=== PATIENT | female | born 1990 | race Caucasian/White ===

== ENCOUNTER → 2020-08-01 11:10 | Outpatient (CLI) | payer OTHER, SELFPAY ==
--- NOTE | 2020-08-01 11:15 | DI.US.S_ITS ---
PROCEDURE: US OB <= 14 WEEKS FETUS INDICATIONS: DATING AND VIABILITY OUTSIDE/PRIOR DATING DATA: Last menstrual period (LMP): 05/21/20 LMP-based estimated date of delivery (MILLIE): 02/25/21 First dating scan (date and location): This study Estimated date of delivery (MILLIE) from first dating scan: 02/23/21 TECHNIQUE: Real-time scanning was performed of the fetus and maternal pelvic organs, with image documentation. Endovaginal scanning was also performed to better visualize the fetus and maternal ovaries. COMPARISON: None. FINDINGS: Embryo: There is a single living intrauterine gestation with heart rate 163 beats per minute and crown-rump length 3.7 cm which correlates with a gestational age of 10 weeks 4 days, +/-5 days. Measurement variability in dating: +/- 4 weeks by LMP, +/- 7 days by mean sac diameter (use before 6 weeks gestation if crown-rump length not able to be measured), +/- 5 days by crown-rump length (up to 8 weeks 6 days gestation), +/- 7 days by crown-rump length (up to 13 weeks 6 days gestation). Maternal organs: Ovaries the right ovary appears asymmetric measuring up to 3.9 x 3.8 x 6.0 cm with what appears to be a right ovarian cyst measuring up to 3.4 x 3.4 x 4.1 cm. . IMPRESSION: Single living intrauterine gestation with heart rate observed and delivery date projected to be centered on 02/23/21, +/-5 days. Note is made of an abnormally enlarged right ovary predominantly due to a large cyst at the right ovary. It is unclear whether this is a pre-existing longstanding cyst or an unusual manifestation of a corpus luteum cyst. Follow-up in several weeks to confirm resolution is recommended. Finally, follow-up anatomic survey at 20 weeks gestation is recommended. Dictated by: Kun Gould M.D. on 08/01/2020 at 13:11 Approved by: Kun Gould M.D. on 08/01/2020 at 13:16
== END ==
PROVIDERS: Referring Provider Obstetrics & Gynecology; Visit Provider Obstetrics & Gynecology
DX: Z34.81 Encounter for supervision of other normal pregnancy, first trimester (principal); Z3A.10 10 weeks gestation of pregnancy
CPT/HCPCS: 36415; 76801; 76817; 80055; 81003; 86787; 86803; 86850; 86900; 86901; 87086; 87389

== ENCOUNTER → 2020-08-01 11:56 | Outpatient (CLI) | payer OTHER, SELFPAY ==
[2020-08-01 12:22] LABS: Add Manual Diff / Slide Review NO; Basophils Absolute Auto 0 /uL (0-100); Basophils Percent Auto 0.6 % (0-2); Eosinophils Absolute Auto 100 /uL (0-450); Hematocrit 38.4 % (36-46); Hemoglobin 13.2 g/dL (12.0-16.0); Lymphocytes Absolute Auto 1800 /uL (1100-4500); Mean Corpuscular HGB Conc 34.5 % (30-36); Mean Corpuscular Hemoglobin 31.7 PG (26-34); Monocytes Absolute Auto 600 /uL (0-900); Monocytes Percent Auto 7.2 % (3-14); Neutrophils Absolute Auto 5300 /uL (1500-7000); Neutrophils Percent Auto 68.2 % (50-75); Platelet Count 192 X10^3/uL (150-400); Red Blood Cell Count 4.18 X10^6/uL (4.0-5.2); White Blood Cell Count 7.7 X10^3/uL (4.5-11.0)
[2020-08-01 12:36] LABS: Appearance Urine UA CLEAR; Bilirubin Urine UA NEGATIVE (NEGATIVE); Color Urine UA YELLOW; Glucose Urine UA NEGATIVE (Negative); Ketones Urine UA NEGATIVE (NEGATIVE); Leukocyte Esterase Urine UA NEGATIVE (NEGATIVE); Nitrite Urine UA NEGATIVE (Negative); Occult Blood Urine UA NEGATIVE (Negative); Protein Urine UA NEGATIVE (Negative); Specific Gravity Urine UA <=1.005 (1.000-1.035); Urobilinogen Urine UA 0.2 E.U./dL (0.2)
[2020-08-01 13:50] LABS: Hepatitis B Surface Antigen NEGATIVE s/c (NEGATIVE); Rubella Antibody IgG 7.6 IU/mL (>15)
[2020-08-01 14:06] LABS: HIV 1 & 2 Ab/Ag 4th Gen Combo NEGATIVE (NEGATIVE); Hep C Virus Ab w/Reflex Quant NEGATIVE s/c (NEGATIVE)
[2020-08-02 06:38] LABS: RPR Screen Non Reactive (Non Reactive)
[2020-08-02 08:08] LABS: Varicella IgG Antibody 523 index (Immune >165)
== END ==
PROVIDERS: Referring Provider Obstetrics & Gynecology; Visit Provider Obstetrics & Gynecology
DX: Z34.81 Encounter for supervision of other normal pregnancy, first trimester (principal)
CPT/HCPCS: 36415; 80055; 81003; 86787; 86803; 86850; 86900; 86901; 87086; 87389

== ENCOUNTER → 2020-10-08 14:08 | Outpatient (CLI) | payer OTHER, SELFPAY ==
--- NOTE | 2020-10-08 14:09 | DI.US.S_ITS ---
PROCEDURE: US OB >= 14 WEEKS FETUS INDICATIONS: ANATOMY SCAN OUTSIDE/PRIOR DATING DATA: Last menstrual period (LMP): 05/21/2020 LMP-based estimated date of delivery (MILLIE): 02/25/2021 . First dating scan (date and location): 08/01/2020 . Estimated date of delivery (MILLIE) from first dating scan: 02/23/2021 . TECHNIQUE: Real-time scanning was performed of the fetus, with image documentation and biometric measurements. Endovaginal scanning: No COMPARISON: [facility], , OB <= 14 WEEKS FETUS, 08/11/2020, 13:58. FINDINGS: General: A single living intrauterine gestation is present. Presentation: Vertex Placenta: Placental position is posterior , without previa. Amniotic fluid index: 14.3 cm, normal range is 5-24 cm. heart rate: 153 beats per minute. Maternal cervical canal: 3.7 cm long. Normal lower limit is 2.5 cm. biometrics: Biparietal diameter: 20 weeks Head circumference: 20 weeks Abdominal circumference: 20 weeks 4 days Femur length: 21 weeks 4 days Estimated gestational age from initial scan: 20 weeks 2 days Composite gestational age from present scan: 20 weeks 4 days Estimated weight and percentile: 380 g; 81st percentile Measurement variability for biometric dating: +/- 7 days from 14 weeks to 15 weeks 6 days gestation, +/- 10 days from 16 weeks to 21 weeks 6 days gestation, +/- 2 weeks from 22 weeks to 27 weeks 6 days gestation, +/- 3 weeks for 28 weeks gestation or later. weight reference: 4500 g or EFW >90/95% is considered macrosomia or large for gestational age. EFW <10% is small for gestational age. EFW 5% or less is considered intra-uterine growth restriction. Anatomic survey: Neuro: Ventricles are non-dilated at less than 10 mm. Cisterna magna is normal at 3-11 mm. Cerebellum is normal in size and morphology. Nuchal skin fold: Normal at less than 6 mm between 14-21 weeks gestational age. Face: Nose and lips, facial profile are normal. Spine: No evidence for spina bifida. Heart: 4-chambered heart is present, with normal ventricular outflow tracts. Diaphragm: Diaphragm is intact. Stomach: Left-sided stomach is present. Kidneys: No hydronephrosis. Normal is less than 5 mm in 2nd trimester, less than 7 mm in 3rd trimester. Cord: 3-vessel cord has orthotopic insertion. Bladder: Normal in size. Extremities: All 4 extremities identified. IMPRESSION: 1. Normal interval growth. 2. Normal anatomic survey. Dictated by: Memo Jimenez [facility] Interpreted: Kun Gould MD on 10/08/2020 at 15:45 Transcribed by: DAYSI on 10/08/2020 at 15:47 Approved by: Kun Gould M.D. on 10/08/2020 at 17:23
== END ==
PROVIDERS: Referring Provider Obstetrics & Gynecology; Visit Provider Obstetrics & Gynecology
DX: Z36.89 Encounter for other specified antenatal screening (principal); Z3A.20 20 weeks gestation of pregnancy
CPT/HCPCS: 76811

== ENCOUNTER → 2020-11-24 09:33 | Outpatient (CLI) | payer OTHER, SELFPAY ==
[2020-11-24 11:53] LABS: Hematocrit 36.2 % (36-46); Hemoglobin 12.2 g/dL (12.0-16.0)
[2020-11-24 12:12] LABS: GTT (PREG) 1 Hour PP 50gm Dose 106 mg/dL (76-139)
== END ==
PROVIDERS: Referring Provider Obstetrics & Gynecology; Visit Provider Obstetrics & Gynecology
DX: Z34.82 Encounter for supervision of other normal pregnancy, second trimester (principal); Z3A.24 24 weeks gestation of pregnancy
CPT/HCPCS: 36415; 82950; 85014; 85018

== ENCOUNTER → 2021-02-02 09:57 | Outpatient (CLI) | payer OTHER, SELFPAY ==
[2021-02-04 07:38] LABS: Strep Grp B PCR POS for Grp B Strep
== END ==
PROVIDERS: Visit Provider Obstetrics & Gynecology
DX: Z34.83 Encounter for supervision of other normal pregnancy, third trimester (principal); Z3A.36 36 weeks gestation of pregnancy
CPT/HCPCS: 87653

== ENCOUNTER 2021-02-20 07:05 | Inpatient (IN) | payer OTHER, SELFPAY ==
--- NOTE | 2021-02-20 08:19 | P.HPOB_ITS ---
OB HPI Date/Time Date of admission: 02/20/21 Date Patient Seen: 02/20/21 Time Patient Seen: 07:35 History of Present Condition Chief complaint: L&D MILLIE Calculator Estimated Delivery Date Method Current WG Current Estimate 02/25/21 LMP (Certain) 39w 5d Other Estimates 02/23/21 Ultrasound #1 40w 0d Estimated Gestational Age (weeks): 39+2 : 6 Para: 3 care: good care, initiated at week # (1), number of visits (9) and pounds weight gain (13) Dating criteria OB: LMP confirmed by 1st trimester US Ultrasounds: normal 1st trimester US and normal mid trimester US Obstetrical complications: none Medical complications OB: none Preadmission Labs Last OB Lab Results: Blood Type A Positive 02/20/21 08:00 02/20/21 Antibody Screen Negative 02/20/21 08:00 02/20/21 Hematocrit 39.2 % (36-46) 02/20/21 08:00 02/20/21 Hemoglobin 13.5 g/dL (12.0-16.0) 02/20/21 08:00 02/20/21 Hepatitis B Surface Antigen Negative s/c (NEGATIVE) 08/01/20 12:03 08/01/20 Hepatitis C Antibody Negative s/c (NEGATIVE) 08/01/20 12:03 08/01/20 Rubella Antibody 7.6 IU/mL (>15) L 08/01/20 12:03 08/01/20 Varicella-Zoster IgG Antibody 523 index (Immune >165) 08/01/20 12:03 08/01/20 Glucose 1 Hour 106 mg/dL (76-139) 11/24/20 11:09 11/24/20 Group B Streptococcus (PCR) Pos for grp b strep H 02/02/21 09:57 02/02/21 -: Chlamydia screen: negative, Gonorrhea screen: negative and Urine: negative -: PAP smear: Normal External Labs -: Urine: negative Prior (ies) Past Pregnancies Del. Date GA/Weeks Labor Lgth Wt Sex Route Outcome Anesthesia Place Delv Breastfeed Preg Comp Name 05/15/12 7-8 spontaneous 08/15/14 40.4 40 7 lb 15 oz Female vaginal live - full te rm none [place], [place] 6 mos, OCPs started:low supply none Cathryn 07/21/16 13 spontaneous 04/20/18 39.5 26 6 lb 8 oz Female vaginal live - full ter m epidural [place], [place] 1 week; latch challenges pre-eclampsia Fauzia 07/06/19 37 13 6 lb 14 oz Male vaginal live - epidural [place], [place] 13+, low supply, also formula. pre-eclampsia Filipe Delivery Date: 05/15/12 Last Updated by: Keke Ortega R.N. D & C. Delivery Date: 08/15/14 Last Updated by: Keke Ortega R.N. 2nd degree w repair. No PPD. Delivery Date: 04/20/18 Last Updated by: Keke Ortega R.N. GBS+. Induced for Preeclampsia without severe features. BP elevation started late 38/39 wks. Delivery Date: 07/06/19 Last Updated by: Keke Ortega R.N. GBS+. Preeclampsia with severe features, induced at 37 wks. (COOK and visual changes). BP started rising early @ 13/14 wks, another high BP @ 29 weeks then stable until sx started @ 37 wks. jaundice with phototherapy. Evaluation Evaluation Baseline heart rate: 135 Variability: Moderate (11-25) monitor accelerations: Present Monitor Decelerations: Absent Contraction Frequency (minutes): 3 Uterine Contraction Intensity: Strong/Firm Status: Category l Dilation (cm): 10 Effacement (%): 100 station: +1 [facility] Medical History (Updated 02/13/21 @ 20:38 by Chata Milian DO) Abnormal Papanicolaou smear of cervix (~2013) Chronic eczema (~1993) Preeclampsia Surgical History (Updated 08/07/20 @ 14:44 by Keke Ortega RN) H/O dilation and curettage (~2016) [place] teeth extracted Family History (Updated 08/07/20 @ 14:51 by Keke Ortega RN) Mother Thyroid cancer Father No problems noted. Grandmother Hypertension Uterine cancer H/O: hysterectomy Grandfather Alzheimer's disease Myocardial infarct Grandmother Brain tumor Grandfather FH: CABG (coronary artery bypass surgery) Heart disease Social History marital status: number of children: 3 household members: spouse, family (Pts brother. ) and children lives independently: Yes caregiver/support person: No housing: house pets and animals: Yes (2 dogs: safe. ) education level: college occupational status: unemployed ([employer] current occupational exposures/hazards: No special gay needs: No seatbelt use: always helmet use: Yes working smoke detector in home: Yes fire extinguisher in home: Yes carbon monox detector in home: Yes firearms in home: No do you feel safe at home: Yes Smoking Status: Former smoker Tobacco: How many years used: 1 quit status: has quit before second hand exposure: No alcohol intake: never substance use type: does not use during the past year weight has: decreased > 10 lbs well-balanced diet: daily or most days caffeine: No frequency: does not exercise (Not since moving to [facility]. Used to do interval type workouts. ) Meds Home Medications and Allergies Home Medications Medication Instructions Recorded Confirmed Type cetirizine 10 mg tablet (Zyrtec) 10 mg PO DAILY PRN 08/07/20 02/21/21 History magnesium 200 mg tablet 200 mg PO DAILY 08/07/20 02/21/21 History prenat.vits,zoila,[id number] 1 tab PO DAILY 08/07/20 02/21/21 History Allergies Allergy/AdvReac Type Severity Reaction Status Date / Time soy Allergy Severe Anaphylaxis Verified 02/09/21 09:29 tree nut Allergy Intermediate Itchy Verified 02/09/21 09:29 throat and swelling naproxen [From Aleve] AdvReac Mild GI Upset Verified 02/09/21 09:29 sulfamethoxazole AdvReac Mild GI upset Verified 02/09/21 09:29 [From Bactrim] trimethoprim [From Bactrim] AdvReac Mild GI upset Verified 02/09/21 09:29 OB Exam Narrative Exam Narrative: Generally: Patient tolerating contractions without an epidural Lungs: Clear to auscultation bilaterally Cardiovascular: Regular rate and rhythm Fundal height: 39 cm Estimated weight: 8 lb Extremities: No edema, 1+ DTRs Objective Labs Result Diagrams: 02/20/21 08:00 Assessment and Plan Assessment and Plan Assessment and Plan narrative: Assessment: 30-year-old 6 para 3 at 39-,2/7 weeks gestation in active labor entering second stage Plan: Artificial rupture of membranes with copious clear amniotic fluid Expected management to spontaneous vaginal delivery Time Spent with Patient Total time spent with greater than 50% in coordination of care (as documented) at patient's floor/unit and/or counseling patient:: 15-24 minutes
[2021-02-20 08:23] LABS: Add Manual Diff / Slide Review NO; Basophils Absolute Auto 0 /uL (0-100); Basophils Percent Auto 0.2 % (0-2); Eosinophils Absolute Auto 100 /uL (0-450); Eosinophils Percent Auto 0.5 % (2-4); Hematocrit 39.2 % (36-46); Hemoglobin 13.5 g/dL (12.0-16.0); Lymphocytes Absolute Auto 1900 /uL (1100-4500); Lymphocytes Percent Auto 19.7 % (25-40); Mean Corpuscular HGB Conc 34.4 % (30-36); Mean Corpuscular Hemoglobin 32.3 PG (26-34); Mean Corpuscular Volume 94.1 fL (80-100); Monocytes Absolute Auto 700 /uL (0-900); Monocytes Percent Auto 7.5 % (3-14); Neutrophils Absolute Auto 7100 /uL (1500-7000); Neutrophils Percent Auto 72.1 % (50-75); Platelet Count 128 X10^3/uL (150-400); Red Blood Cell Count 4.16 X10^6/uL (4.0-5.2); Red Cell Distribution Width 13.6 % (11.6-14.8); White Blood Cell Count 9.9 X10^3/uL (4.5-11.0)
[2021-02-20] MEDS: OXYTOCIN PREMIX 30 UNIT/500 ML PLAST..BAG 200 UNIT IV (08:35)
[2021-02-20 08:39] LABS: COVID19 -Nasal RAPID Negative (Negative)
[2021-02-20] MEDS: KETOROLAC 30 MG/ML VIAL IV ×2 (08:53→14:56)
[2021-02-20 11:57] VITALS: BP 130/68
--- NOTE | 2021-02-20 14:41 | P.PCNOB_ITS ---
Labor & Delivery Delivery date: 02/20/21 Intrapartal Events: Precipitous Labor < 3 hours Cervical ripening method: none Induction method: none Delivery augmentation: rupture of membranes Delivery monitor: external FHT and external uterine Route of delivery: Episiotomy description: None L&D Laceration Description: Perineal - 1st Degree Delivery repair: chromic Estimated blood loss (mL): 300 Anesthesia Type: Local (for repair only) Complications: None Narrative: Patient complete and pushed with 2 contractions. At 0825, a live female infant delivered spontaneously in the CONNER presentation, over an intact perineum. No nuchal cord. The remainder of the body delivered without difficulty and was placed on mom's abdomen. There was a short cord. After the cord stopped pulsing, the cord was double clamped and cut. Cord bloods were obtained. Pitocin was given in the IV fluids. The placenta delivered intact with a three- vessel cord at 8:35 a.m.. The fundus was massaged to firm. A first-degree perineal laceration was repaired with 3-0 chromic in the usual fashion, after 10 cc of 1% lidocaine were injected. Hemostasis was achieved. Estimated blood loss 300 cc. Apgars 7 at 1 minute and 9 at 5 minutes. Weight 8 lb 14.9 oz. . Local analgesia only. Mom and stable to recovery. [place] Baby 1: Infant gender: Female Presentation: vertex Position: Right Occiput Anterior Placenta delivery description: Spontaneous Cord Vessel Description: 3 Vessels score (1 min): 7 score (5 min): 9 weight: 8 lb 14 oz Plan for aftercare: Routine care
[2021-02-20] MEDS: LANOLIN OINT 7 GM 1 APPLIC TOP (14:57)
[2021-02-20] MEDS: IBUPROFEN 600 MG TABLET PO (21:07)
[2021-02-21] MEDS: IBUPROFEN 600 MG TABLET PO ×2 (02:55→09:06)
[2021-02-21] MEDS: PRENATAL VIT,CALC/IRON/FOLIC 1 TABLET 1 TAB PO (09:06)
[2021-02-21] MEDS: DOCUSATE 100 MG CAPSULE PO (09:06)
[2021-02-21 12:10] VITALS: BP 121/81; PULSE 92; RESP 16; TEMP 36.6
--- NOTE | 2021-02-23 22:20 | PM.OBDS.1 ---
Discharge Providers Provider Date of admission: 02/20/21 07:05 Discharge Date: 02/21/21 Consults: 02/21/21 08:44 Consult to Dupligraph Operator Routine Comment: Discharge provider: Amie Alba MD Summary Hospital Course Date Patient Seen: 02/21/21 Time Patient Seen: 08:45 Diagnoses: 39-2/7 weeks gestation Spontaneous vaginal delivery First-degree perineal laceration and repair Precipitous labor and delivery Hospital Course: Patient is a 30-year-old 6 para 4 who presented on February 20, 2021 fully dilated with a bulging bag of water. Artificial rupture membranes was performed with copious clear amniotic fluid. She pushed twice and had a spontaneous vaginal delivery. She had a first-degree laceration and repair. Her course was unremarkable and she is discharged home on day # 1. Peripartum Data Delivery Method: Natural Vaginal Laceration Description: Perineal - 1st Degree Episiotomy description: None Procedures: Artificial rupture of membranes Spontaneous vaginal delivery First-degree perineal laceration repair complications: none 1: Gender: Female Disposition of : home Status at Discharge Cognitive/behavioral status at discharge: oriented Functional status at discharge: independent ambulation Overall status at discharge: patient is progressing back to baseline Time Spent with Patient Time attestation: Total time spent providing and/or coordinating discharge services: Time spent: Less than 30 minutes Objective Labs Result Diagrams: 02/20/21 08:00 Exam Narrative Exam Narrative: Generally: Patient is sitting up in bed, holding , no acute distress Fundus: Firm at U -1 Extremities: Negative Homans, no edema Discharge Plan Discharge Plan Patient Disposition: Home Provider Discharge Comment: Call with fever, chills or bleeding vaginally more than a pad in an hour Ibuprofen 600mg every 6 hours for cramping Discharge orders & Medications Prescriptions: Continued cetirizine [Zyrtec] 10 mg tablet 10 mg PO DAILY PRN (Reason: Allergic Symptoms) 0RF prenat.vits,zoila,[id number] Tablet 1 tab PO DAILY 0RF magnesium 200 mg tablet 200 mg PO DAILY 0RF Follow up/Referrals: Amie Alba MD [Physician] - 6 Weeks () Diet/Activity/Treatments Diet: Regular Skin/Wound/Dressing Care Report to your healthcare provider any signs of infection, such as:: chills, fever, increased pain and unusual drainage Visit Report/Discharge Packet Instructions: DI for Labor and Delivery, Vaginal Stand Alone Forms: Discharge: Care
== END 2021-02-21 14:50 | disposition home or self-care (01) | DRG 807 ==
PROVIDERS: Admitting Provider Obstetrics & Gynecology; Referring Provider Obstetrics & Gynecology; Visit Provider Obstetrics & Gynecology
DX: O99.824 Streptococcus B carrier state complicating childbirth (principal); Z37.0 Single live birth; Z3A.39 39 weeks gestation of pregnancy; O62.3 Precipitate labor; O70.0 First degree perineal laceration during delivery
CPT/HCPCS: 36415; 59050; 59400; 85025; 86850; 86900; 86901; 87635; C9803; G0379; J1885; J2590

== ENCOUNTER 2022-01-01 14:30 | Outpatient (RCR) | payer OTHER, SELFPAY ==
--- NOTE | 2021-09-14 12:00 | PT.OPPOC ---
Physical, Occupational & Speech Therapy At [facility] Current Diagnoses Low back pain, unspecified (09/14/21) Other specified disorders of muscle (09/14/21) Stress incontinence (female) (male) (09/14/21) Visit Care Team Role Provider Type Argenis Ackerman MD Attending Provider Physician Family Provider Primary Care Provider Referring Provider Specialty: Family Practice Address: [address] [place] [address], [place], [address] Email: [email or web address] Plan Of Care PT-OP-T Assessment and Plan Start: 09/14/21 07:57 Freq: Status: Active Protocol: Document 09/14/21 09:00 AMB (Rec: 09/16/21 21:30 AMB [id number]) Physical Therapy Assessment Rehab Potential Rehabilitation Potential Good Evaluation Complexity Number of Personal Factors/Comorbidities 1-2 Number of Body Systems Impaired 1-2 Clinical Presentation at Evaluation Stable Impairments Impairments Pain,Strength Goals Two Impairment Back pain/diastasis recti Short Term Goal (STG) Yesika will be independent with a HEP for pelvic floor and core strengthening STG Duration 5 weeks Alf Goal (LTG) Yesika will lift her children with 1/10 back pain or less. LTG Duration 10 weeks One Impairment Continence Short Term Goal (STG) Yesika will squat without leaking urine. STG Duration 5 weeks Case Mgr Goal (LTG) Yesika will perform light plyometrics without leaking. LTG Duration 10 weeks Assessment Summary Assessment Yesika attends PT with [facility] s/p 4 vaginal deliveries. She would also like to address her low back pain and diastasis recti, which are all related to her goal of returning to exercise. She presents with 3 /5 pelvic floor strength, 2 finger width diastasis which contributes to low back pain, which improved with exercise, but CHAZ is worse with exercise. She will benefit from PT for appropriate return to exercise program to improve levator ani and transversus abdominus strength to reduce her incontinence and pain. Physical Therapy Plan Frequency and Duration Frequency of Treatment 1x/Week Duration of Treatment 10 weeks Plan of Care Start Date 09/14/21 Plan of Care End Date 11/23/21 Therapeutic Interventions Therapeutic Interventions Home Exercise Program,Manual Therapy,Neuromuscular Re- education,Self-Care/Home Management,Therapeutic Activities,Therapeutic Exercises Modalities Biofeedback,Electric Stimulation Next Visit Focus/Plan Next Note Type Treatment Note Next Visit Plan Biofeedback/ progress strengthening, address TA weakness, consider taping for diastasis Plan of Care Dates Plan of Care Start Date 09/14/21 Plan of Care End Date 11/23/21 Electronically Signed by: Violet Renteria, PT 09/17/21 0726 If you are in agreement with this Plan of Care, please return a signed and dated copy. I have reviewed this Plan of Care and certify that the skilled therapy services above are required to meet the patient?s needs. Physician Signature Date Printed Name and Credentials Clinical Instructor Signature Printed Name and Credentials
--- NOTE | 2021-09-14 12:00 | PT.OIE ---
Current Diagnoses Low back pain, unspecified (09/14/21) Other specified disorders of muscle (09/14/21) Stress incontinence (female) (male) (09/14/21) Past Medical History (Last Updated 08/28/21 @ 21:17 by Evy Nielsen) Abnormal Papanicolaou smear of cervix (~2013) Chronic eczema (~1993) Preeclampsia Past Surgical History (Last Updated 08/28/21 @ 21:17 by Evy Nielsen) Anesthesia H/O dilation and curettage (~2016) [place] teeth extracted (~05/2013) Visit Care Team Role Provider Type Argenis Ackerman MD Attending Provider Physician Family Provider Primary Care Provider Referring Provider Specialty: [facility] Practice Address: [address] [place] [address], [facility] Email: [email or web address] Physical Therapy Initial Evaluation PT-OP-A Visit Information Start: 09/14/21 07:57 Freq: Status: Active Protocol: Document 09/14/21 09:05 AMB (Rec: 09/14/21 09:23 AMB [id number]) Out-Patient Physical Therapy Visit Information Visit Information Visit Type Initial Evaluation Visit Start Time 09:00 Visit Stop Time 09:45 Total Visit Minutes 45 Visit Number 1 PT-OP-B Current Condition Start: 09/14/21 07:57 Freq: Status: Active Protocol: Document 09/14/21 09:05 AMB (Rec: 09/14/21 09:23 AMB [id number]) Current Condition History of Current Condition Onset Date 6 months Current Complaints Stress urinary incontinence History of Current Condition vaginal deliveries, 3 in last 3 years. 2nd degree tear with the first, then 1st, no prolonged pushings, no longer breast feeding. Current back pain. Noticed it at least 4 months ago. Was getting better with exercise and then stopped exercising because of a dental procedure and hasn't gotten back to it. Denies urgency. Does have stress incontinence intermittently, mostly with exercise. Sometimes squatting, sometimes not. Personal Factors Other Personal Factors That May Effect Back pain, 4 vaginal Therapy/Recovery deliveries PT-OP-C Subjective Start: 09/14/21 07:57 Freq: Status: Active Protocol: Document 07/28/22 07:23 AMB (Rec: 09/17/21 07:24 AMB [id number]) Patient Questionnaires Pelvic Pain and Urgency/Frequency Patient Symptom Scale Pelvic Pain Score 2 PT-OP-I Pelvic Floor Start: 09/14/21 07:57 Freq: Status: Active Protocol: Document 09/14/21 09:00 AMB (Rec: 09/16/21 21:30 AMB [id number]) Pelvic Floor Assessment Urine Pelvic Floor Surgery No Leakage Size Small Leakage Cause Exercise Voiding Frequency 5/day Nocturia 1 Prolapse Rectocele Grade 2 Perineal Descent Resting Absent Bearing Present Contraction Ability Voluntary Contraction Weak Voluntary Relaxation Moderate Manual Muscle Testing Left 3 Manual Muscle Testing Right 3 Manual Muscle Testing Anterior 3 Manual Muscle Testing Posterior 3 Muscle Endurance (Seconds) 7 Number of Quick Contractions In 10 4 Seconds Comments Pelvic Floor Comments 2 finger width diastasis distal to umbilicus PT-OP-T Assessment and Plan Start: 09/14/21 07:57 Freq: Status: Active Protocol: Document 09/14/21 09:00 AMB (Rec: 09/16/21 21:30 [facility] [id number]) Physical Therapy Assessment Rehab Potential Rehabilitation Potential Good Evaluation Complexity Number of Personal Factors/Comorbidities 1-2 Number of Body Systems Impaired 1-2 Clinical Presentation at Evaluation Stable Impairments Impairments Pain,Strength Goals Two Impairment Back pain/diastasis recti Short Term Goal (STG) Yesika will be independent with a HEP for pelvic floor and core strengthening STG Duration 5 weeks [employer] Operator Goal (LTG) Yesika will lift her children with 1/10 back pain or less. LTG Duration 10 weeks One Impairment Continence Short Term Goal (STG) Yesika will squat without leaking urine. STG Duration 5 weeks [facility] Goal (LTG) Yesika will perform light plyometrics without leaking. LTG Duration 10 weeks Assessment Summary Assessment Yesika attends PT with [facility] s/p 4 vaginal deliveries. She would also like to address her low back pain and diastasis recti, which are all related to her goal of returning to exercise. She presents with 3 /5 pelvic floor strength, 2 finger width diastasis contributes to low back pain which improved with exercise, but CHAZ is worse with exercise. She will benefit from PT for appropriate return to exercise program to improve levator ani and transversus abdominus strength to reduce her incontinence and pain. Physical Therapy Plan Frequency and Duration Frequency of Treatment 1x/Week Duration of Treatment 10 weeks Plan of Care Start Date 09/14/21 Plan of Care End Date 11/23/21 Therapeutic Interventions Therapeutic Interventions Home Exercise Program,Manual Therapy,Neuromuscular Re- education,Self-Care/Home Management,Therapeutic Activities,Therapeutic Exercises Modalities Biofeedback,Electric Stimulation Next Visit Focus/Plan Next Note Type Treatment Note Next Visit Plan Biofeedback/ progress strengthening, address TA weakness, consider taping for diastasis
--- NOTE | 2021-09-21 12:57 | PT.OTN ---
Current Diagnoses Low back pain, unspecified (09/21/21) Other specified disorders of muscle (09/21/21) Stress incontinence (female) (male) (09/21/21) Physical Therapy Treatment Note PT-OP-A Visit Information Start: 09/14/21 07:57 Freq: Status: Active Protocol: Document 09/21/21 12:44 AMB (Rec: 09/21/21 12:57 AMB [id number]) Out-Patient Physical Therapy Visit Information Visit Information Visit Type Treatment Note Visit Start Time 09:00 Visit Stop Time 09:45 Total Visit Minutes 45 Visit Number 2 PT-OP-B Current Condition Start: 09/14/21 07:57 Freq: Status: Active Protocol: Document 09/14/21 09:05 AMB (Rec: 09/14/21 09:23 AMB [id number]) Current Condition History of Current Condition Onset Date 6 months Current Complaints Stress urinary incontinence History of Current Condition vaginal deliveries, 3 in last 3 years. 2nd degree tear with the first, then 1st, no prolonged pushings, no longer breast feeding. Current back pain. Noticed it at least 4 months ago. Was getting better with exercise and then stopped exercising because of a dental procedure and hasn't gotten back to it. Denies urgency. Does have stress incontinence intermittently, mostly with exercise. Sometimes squatting, sometimes not. Personal Factors Other Personal Factors That May Effect Back pain, 4 vaginal Therapy/Recovery deliveries PT-OP-C Subjective Start: 09/14/21 07:57 Freq: Status: Active Protocol: Document 09/21/21 12:44 AMB (Rec: 09/21/21 12:57 AMB [id number]) OP-PT Subjective Patient Comments Patient Reported Progress Same PT-OP-I Pelvic Floor Start: 09/14/21 07:57 Freq: Status: Active Protocol: Document 09/14/21 09:00 AMB (Rec: 09/16/21 21:30 AMB [id number]) Pelvic Floor Assessment Urine Pelvic Floor Surgery No Leakage Size Small Leakage Cause Exercise Voiding Frequency 5/day Nocturia 1 Prolapse Rectocele Grade 2 Perineal Descent Resting Absent Bearing Present Contraction Ability Voluntary Contraction Weak Voluntary Relaxation Moderate Manual Muscle Testing Left 3 Manual Muscle Testing Right 3 Manual Muscle Testing Anterior 3 Manual Muscle Testing Posterior 3 Muscle Endurance (Seconds) 7 Number of Quick Contractions In 10 4 Seconds Comments Pelvic Floor Comments 2 finger width diastasis distal to umbilicus PT-OP-Q Treatments Start: 09/14/21 07:57 Freq: Status: Active Protocol: Document 09/21/21 12:44 AMB (Rec: 09/21/21 12:57 AMB [id number]) Therapeutic Exercises Supine Exercises hooklying march Reps/Minutes 2x20 Comments cue TA and PF Other Exercises quadruped UE ext Reps/Minutes 2x10 Comments cue PF and TA, breath Manual Therapy Treatment Taping 1 Type of Tape Kinesio Tape Comments herringbone pattern for PT-OP-T Assessment and Plan Start: 09/14/21 07:57 Freq: Status: Active Protocol: Document 09/21/21 12:44 AMB (Rec: 09/21/21 12:57 AMB [id number]) Physical Therapy Assessment Goals Two Impairment Back pain/diastasis recti Short Term Goal (STG) Yesika will be independent with a HEP for pelvic floor and core strengthening STG Duration 5 weeks Manager Laundry Goal (LTG) Yesika will lift her children with 1/10 back pain or less. LTG Duration 10 weeks One Impairment Continence Short Term Goal (STG) Yesika will squat without leaking urine. STG Duration 5 weeks Manager Laundry Goal (LTG) Yesika will perform light plyometrics without leaking. LTG Duration 10 weeks Assessment Summary Assessment Yesika finds it difficult to engage both pelvic floor and TA in standing, can do in quadruped and hooklying. Physical Therapy Plan Frequency and Duration Frequency of Treatment 1x/Week Duration of Treatment 10 weeks Plan of Care Start Date 09/14/21 Plan of Care End Date 11/23/21 Next Visit Focus/Plan Next Note Type Treatment Note Next Visit Plan Biofeedback/ progress strengthening, address TA weakness, follow up on taping
--- NOTE | 2021-09-28 12:05 | PT.OTN ---
Current Diagnoses Low back pain, unspecified (09/28/21) Other specified disorders of muscle (09/28/21) Stress incontinence (female) (male) (09/28/21) Physical Therapy Treatment Note PT-OP-A Visit Information Start: 09/14/21 07:57 Freq: Status: Active Protocol: Document 09/28/21 09:02 AMB (Rec: 09/28/21 09:49 AMB [id number]) Out-Patient Physical Therapy Visit Information Visit Information Visit Type Treatment Note Visit Start Time 09:00 Visit Stop Time 09:45 Total Visit Minutes 45 Visit Number 3 PT-OP-B Current Condition Start: 09/14/21 07:57 Freq: Status: Active Protocol: Document 09/14/21 09:05 AMB (Rec: 09/14/21 09:23 AMB [id number]) Current Condition History of Current Condition Onset Date 6 months Current Complaints Stress urinary incontinence History of Current Condition vaginal deliveries, 3 in last 3 years. 2nd degree tear with the first, then 1st, no prolonged pushings, no longer breast feeding. Current back pain. Noticed it at least 4 months ago. Was getting better with exercise and then stopped exercising because of a dental procedure and hasn't gotten back to it. Denies urgency. Does have stress incontinence intermittently, mostly with exercise. Sometimes squatting, sometimes not. Personal Factors Other Personal Factors That May Effect Back pain, 4 vaginal Therapy/Recovery deliveries PT-OP-C Subjective Start: 09/14/21 07:57 Freq: Status: Active Protocol: Document 09/28/21 09:02 AMB (Rec: 09/28/21 09:49 AMB [id number]) OP-PT Subjective Patient Comments Patient Comments It was not a good week for my back PT-OP-I Pelvic Floor Start: 09/14/21 07:57 Freq: Status: Active Protocol: Document 09/14/21 09:00 AMB (Rec: 09/16/21 21:30 AMB [id number]) Pelvic Floor Assessment Urine Pelvic Floor Surgery No Leakage Size Small Leakage Cause Exercise Voiding Frequency 5/day Nocturia 1 Prolapse Rectocele Grade 2 Perineal Descent Resting Absent Bearing Present Contraction Ability Voluntary Contraction Weak Voluntary Relaxation Moderate Manual Muscle Testing Left 3 Manual Muscle Testing Right 3 Manual Muscle Testing Anterior 3 Manual Muscle Testing Posterior 3 Muscle Endurance (Seconds) 7 Number of Quick Contractions In 10 4 Seconds Comments Pelvic Floor Comments 2 finger width diastasis distal to umbilicus PT-OP-Q Treatments Start: 09/14/21 07:57 Freq: Status: Active Protocol: Document 09/28/21 09:02 AMB (Rec: 09/28/21 09:49 AMB [id number]) Therapeutic Exercises Sitting Exercises 1 Sitting Exercise Name roll in roll out Reps/Minutes 2x10 Comments HEP Standing Exercises standing posture Standing Exercise Name pelvic tilt (posterior) Comments avoid lordosis Other Exercises quadruped UE ext Reps/Minutes 2x10 Comments cue PF and TA, breath PT-OP-T Assessment and Plan Start: 09/14/21 07:57 Freq: Status: Active Protocol: Document 09/28/21 09:02 AMB (Rec: 09/28/21 09:49 AMB [id number]) Physical Therapy Assessment Goals Two Impairment Back pain/diastasis recti Short Term Goal (STG) Yesika will be independent with a HEP for pelvic floor and core strengthening STG Duration 5 weeks Leather Toggler Goal (LTG) Yesika will lift her children with 1/10 back pain or less. LTG Duration 10 weeks One Impairment Continence Short Term Goal (STG) Yesika will squat without leaking urine. STG Duration 5 weeks [facility] Goal (LTG) Yesika will perform light plyometrics without leaking. LTG Duration 10 weeks Assessment Summary Assessment Pt felt taping was helpful for reminder to use abdominals, but didn't decrease back pain. Did feel better with work on decreasing lumbar lordosis. Physical Therapy Plan Next Visit Focus/Plan Next Note Type Treatment Note Next Visit Plan Biofeedback/ progress strengthening, address TA weakness, follow up on posture
--- NOTE | 2021-10-05 15:35 | PT.OTN ---
Current Diagnoses Low back pain, unspecified (10/05/21) Other specified disorders of muscle (10/05/21) Stress incontinence (female) (male) (10/05/21) Physical Therapy Treatment Note PT-OP-A Visit Information Start: 09/14/21 07:57 Freq: Status: Active Protocol: Document 10/05/21 14:35 AMB (Rec: 10/05/21 15:34 AMB [id number]) Out-Patient Physical Therapy Visit Information Visit Information Visit Type Treatment Note Visit Start Time 14:30 Visit Stop Time 15:15 Total Visit Minutes 45 Visit Number 4 PT-OP-B Current Condition Start: 09/14/21 07:57 Freq: Status: Active Protocol: Document 09/14/21 09:05 AMB (Rec: 09/14/21 09:23 AMB [id number]) Current Condition History of Current Condition Onset Date 6 months Current Complaints Stress urinary incontinence History of Current Condition vaginal deliveries, 3 in last 3 years. 2nd degree tear with the first, then 1st, no prolonged pushings, no longer breast feeding. Current back pain. Noticed it at least 4 months ago. Was getting better with exercise and then stopped exercising because of a dental procedure and hasn't gotten back to it. Denies urgency. Does have stress incontinence intermittently, mostly with exercise. Sometimes squatting, sometimes not. Personal Factors Other Personal Factors That May Effect Back pain, 4 vaginal Therapy/Recovery deliveries PT-OP-C Subjective Start: 09/14/21 07:57 Freq: Status: Active Protocol: Document 10/05/21 14:35 AMB (Rec: 10/05/21 15:34 AMB [id number]) OP-PT Subjective Patient Comments Patient Comments Didn't really have a ton of pain in the back this last week. No leaking because hasn 't been working out a ton. PT-OP-I Pelvic Floor Start: 09/14/21 07:57 Freq: Status: Active Protocol: Document 09/14/21 09:00 AMB (Rec: 09/16/21 21:30 AMB [id number]) Pelvic Floor Assessment Urine Pelvic Floor Surgery No Leakage Size Small Leakage Cause Exercise Voiding Frequency 5/day Nocturia 1 Prolapse Rectocele Grade 2 Perineal Descent Resting Absent Bearing Present Contraction Ability Voluntary Contraction Weak Voluntary Relaxation Moderate Manual Muscle Testing Left 3 Manual Muscle Testing Right 3 Manual Muscle Testing Anterior 3 Manual Muscle Testing Posterior 3 Muscle Endurance (Seconds) 7 Number of Quick Contractions In 10 4 Seconds Comments Pelvic Floor Comments 2 finger width diastasis distal to umbilicus PT-OP-Q Treatments Start: 09/14/21 07:57 Freq: Status: Active Protocol: Document 10/05/21 14:35 AMB (Rec: 10/05/21 15:34 AMB [id number]) Therapeutic Exercises Supine Exercises table top Reps/Minutes 30x2 hooklying march Reps/Minutes 2x20 Comments cue TA and PF Sidelying Exercises side plank (modified) Reps/Minutes 30x2 clamshell Reps/Minutes 2x10 Other Exercises quadruped LE ext Reps/Minutes 2x10 Comments cue PF and TA-- small range to avoid lordosis quadruped UE ext Reps/Minutes 2x10 Comments cue PF and TA, breath PT-OP-T Assessment and Plan Start: 09/14/21 07:57 Freq: Status: Active Protocol: Document 10/05/21 14:35 AMB (Rec: 10/05/21 15:34 AMB [id number]) Physical Therapy Assessment Goals Two Impairment Back pain/diastasis recti Short Term Goal (STG) Yesika will be independent with a HEP for pelvic floor and core strengthening STG Duration 5 weeks Reel Cart Operator Goal (LTG) Yesika will lift her children with 1/10 back pain or less. LTG Duration 10 weeks One Impairment Continence Short Term Goal (STG) Yesika will squat without leaking urine. STG Duration 5 weeks Skilled Nursing Goal (LTG) Yesika will perform light plyometrics without leaking. LTG Duration 10 weeks Assessment Summary Assessment Pt is tolerating more challenging exercises, did encourageher to put the ergo band a little lower so it isn' t pulling into her lumbar spine. Can d/c roll in roll out exercise as it is easy but did give table top exercise as HEP. Physical Therapy Plan Frequency and Duration Frequency of Treatment 1x/Week Duration of Treatment 10 weeks Plan of Care Start Date 09/14/21 Plan of Care End Date 11/23/21 Next Visit Focus/Plan Next Note Type Treatment Note Next Visit Plan Biofeedback/ progress strengthening, address TA weakness, follow up on posture
--- NOTE | 2021-10-12 15:52 | PT.OTN ---
Current Diagnoses Low back pain, unspecified (10/12/21) Other specified disorders of muscle (10/12/21) Stress incontinence (female) (male) (10/12/21) Physical Therapy Treatment Note PT-OP-A Visit Information Start: 09/14/21 07:57 Freq: Status: Active Protocol: Document 10/12/21 13:46 AMB (Rec: 10/12/21 14:31 AMB [id number]) Out-Patient Physical Therapy Visit Information Visit Information Visit Type Treatment Note Visit Start Time 13:45 Visit Stop Time 14:30 Total Visit Minutes 45 Visit Number 5 PT-OP-B Current Condition Start: 09/14/21 07:57 Freq: Status: Active Protocol: Document 09/14/21 09:05 AMB (Rec: 09/14/21 09:23 AMB [id number]) Current Condition History of Current Condition Onset Date 6 months Current Complaints Stress urinary incontinence History of Current Condition vaginal deliveries, 3 in last 3 years. 2nd degree tear with the first, then 1st, no prolonged pushings, no longer breast feeding. Current back pain. Noticed it at least 4 months ago. Was getting better with exercise and then stopped exercising because of a dental procedure and hasn't gotten back to it. Denies urgency. Does have stress incontinence intermittently, mostly with exercise. Sometimes squatting, sometimes not. Personal Factors Other Personal Factors That May Effect Back pain, 4 vaginal Therapy/Recovery deliveries PT-OP-C Subjective Start: 09/14/21 07:57 Freq: Status: Active Protocol: Document 10/12/21 13:46 AMB (Rec: 10/12/21 14:31 AMB [id number]) OP-PT Subjective Patient Comments Patient Comments Noticed back pain with bending over for bath time. PT-OP-I Pelvic Floor Start: 09/14/21 07:57 Freq: Status: Active Protocol: Document 09/14/21 09:00 AMB (Rec: 09/16/21 21:30 AMB [id number]) Pelvic Floor Assessment Urine Pelvic Floor Surgery No Leakage Size Small Leakage Cause Exercise Voiding Frequency 5/day Nocturia 1 Prolapse Rectocele Grade 2 Perineal Descent Resting Absent Bearing Present Contraction Ability Voluntary Contraction Weak Voluntary Relaxation Moderate Manual Muscle Testing Left 3 Manual Muscle Testing Right 3 Manual Muscle Testing Anterior 3 Manual Muscle Testing Posterior 3 Muscle Endurance (Seconds) 7 Number of Quick Contractions In 10 4 Seconds Comments Pelvic Floor Comments 2 finger width diastasis distal to umbilicus PT-OP-Q Treatments Start: 09/14/21 07:57 Freq: Status: Active Protocol: Document 10/12/21 13:46 AMB (Rec: 10/12/21 14:31 AMB [id number]) Therapeutic Exercises Supine Exercises supine air bike Supine Exercise Name for core Reps/Minutes 2x30 Comments challenging table top Reps/Minutes 2x10 hooklying march Reps/Minutes 2x20 Comments cue TA and PF Standing Exercises RDL Standing Exercise Name AROM Reps/Minutes 4 Comments light UE support Other Exercises bird dog Reps/Minutes 2x10 PT-OP-T Assessment and Plan Start: 09/14/21 07:57 Freq: Status: Active Protocol: Document 10/12/21 13:46 AMB (Rec: 10/12/21 14:31 AMB [id number]) Physical Therapy Assessment Assessment Summary Assessment Pt was able to jump rope without leaking, asked to engage TrA while doing bathtime. Physical Therapy Plan Next Visit Focus/Plan Next Note Type Treatment Note Next Visit Plan Biofeedback/ progress strengthening, address TA weakness, follow up on posture
--- NOTE | 2021-10-20 14:30 | PT.OTN ---
Current Diagnoses Low back pain, unspecified (10/20/21) Other specified disorders of muscle (10/20/21) Stress incontinence (female) (male) (10/20/21) Physical Therapy Treatment Note PT-OP-A Visit Information Start: 09/14/21 07:57 Freq: Status: Active Protocol: Document 10/20/21 14:36 AMB (Rec: 10/20/21 15:43 AMB [id number]) Out-Patient Physical Therapy Visit Information Visit Information Visit Type Treatment Note Visit Start Time 14:30 Visit Stop Time 15:15 Total Visit Minutes 45 Visit Number 6 PT-OP-B Current Condition Start: 09/14/21 07:57 Freq: Status: Active Protocol: Document 09/14/21 09:05 AMB (Rec: 09/14/21 09:23 AMB [id number]) Current Condition History of Current Condition Onset Date 6 months Current Complaints Stress urinary incontinence History of Current Condition vaginal deliveries, 3 in last 3 years. 2nd degree tear with the first, then 1st, no prolonged pushings, no longer breast feeding. Current back pain. Noticed it at least 4 months ago. Was getting better with exercise and then stopped exercising because of a dental procedure and hasn't gotten back to it. Denies urgency. Does have stress incontinence intermittently, mostly with exercise. Sometimes squatting, sometimes not. Personal Factors Other Personal Factors That May Effect Back pain, 4 vaginal Therapy/Recovery deliveries PT-OP-C Subjective Start: 09/14/21 07:57 Freq: Status: Active Protocol: Document 10/12/21 13:46 AMB (Rec: 10/12/21 14:31 AMB [id number]) OP-PT Subjective Patient Comments Patient Comments Noticed back pain with bending over for bath time. PT-OP-I Pelvic Floor Start: 09/14/21 07:57 Freq: Status: Active Protocol: Document 09/14/21 09:00 AMB (Rec: 09/16/21 21:30 AMB [id number]) Pelvic Floor Assessment Urine Pelvic Floor Surgery No Leakage Size Small Leakage Cause Exercise Voiding Frequency 5/day Nocturia 1 Prolapse Rectocele Grade 2 Perineal Descent Resting Absent Bearing Present Contraction Ability Voluntary Contraction Weak Voluntary Relaxation Moderate Manual Muscle Testing Left 3 Manual Muscle Testing Right 3 Manual Muscle Testing Anterior 3 Manual Muscle Testing Posterior 3 Muscle Endurance (Seconds) 7 Number of Quick Contractions In 10 4 Seconds Comments Pelvic Floor Comments 2 finger width diastasis distal to umbilicus PT-OP-Q Treatments Start: 09/14/21 07:57 Freq: Status: Active Protocol: Document 10/20/21 14:36 AMB (Rec: 10/20/21 15:43 AMB [id number]) Therapeutic Exercises Supine Exercises supine air bike Supine Exercise Name for core Reps/Minutes 2x30 Comments challenging table top Reps/Minutes 2x10 Sidelying Exercises open book Reps/Minutes 10 Other Exercises bird dog Reps/Minutes 2x10 Manual Therapy Treatment Soft Tissue Mobilization 1 Body Location R LB Mobilization Type Myofascial Release,Rolling Intensity/Depth Moderate Body Position Sidelying PT-OP-T Assessment and Plan Start: 09/14/21 07:57 Freq: Status: Active Protocol: Document 10/20/21 14:36 AMB (Rec: 10/20/21 15:43 AMB [id number]) Physical Therapy Assessment Goals Two Impairment Back pain/diastasis recti Short Term Goal (STG) Yesika will be independent with a HEP for pelvic floor and core strengthening STG Duration 5 weeks [facility] Goal (LTG) Yesika will lift her children with 1/10 back pain or less. LTG Duration 10 weeks One Impairment Continence Short Term Goal (STG) Yesika will squat without leaking urine. STG Duration 5 weeks [facility] Goal (LTG) Yesika will perform light plyometrics without leaking. LTG Duration 10 weeks Assessment Summary Assessment Pt did a run/walk for 3/4 mile on the track and was able to do that without leaking. Did have increased back pain with giving kids a bath. Urinary leaking seems to be subsiding, but strength is not up to par , as seen by pain with bathing children. Encouraged in gentle ROM, manual for tightness at mid back. continue pelvic floor, core, deep back strengthening. Physical Therapy Plan Next Visit Focus/Plan Next Note Type Treatment Note Next Visit Plan Reassess back pain. Biofeedback/ progress strengthening, address TA weakness, follow up on posture
--- NOTE | 2021-10-30 12:25 | PT.OTN ---
Current Diagnoses Low back pain, unspecified (10/29/21) Other specified disorders of muscle (10/29/21) Stress incontinence (female) (male) (10/29/21) Physical Therapy Treatment Note PT-OP-A Visit Information Start: 09/14/21 07:57 Freq: Status: Active Protocol: Document 10/29/21 09:45 AMB (Rec: 10/29/21 10:30 AMB [id number]) Out-Patient Physical Therapy Visit Information Visit Information Visit Type Treatment Note Visit Start Time 09:45 Visit Stop Time 10:30 Total Visit Minutes 45 Visit Number 7 PT-OP-B Current Condition Start: 09/14/21 07:57 Freq: Status: Active Protocol: Document 09/14/21 09:05 AMB (Rec: 09/14/21 09:23 AMB [id number]) Current Condition History of Current Condition Onset Date 6 months Current Complaints Stress urinary incontinence History of Current Condition vaginal deliveries, 3 in last 3 years. 2nd degree tear with the first, then 1st, no prolonged pushings, no longer breast feeding. Current back pain. Noticed it at least 4 months ago. Was getting better with exercise and then stopped exercising because of a dental procedure and hasn't gotten back to it. Denies urgency. Does have stress incontinence intermittently, mostly with exercise. Sometimes squatting, sometimes not. Personal Factors Other Personal Factors That May Effect Back pain, 4 vaginal Therapy/Recovery deliveries PT-OP-C Subjective Start: 09/14/21 07:57 Freq: Status: Active Protocol: Document 10/29/21 09:45 AMB (Rec: 10/29/21 10:30 AMB [id number]) OP-PT Subjective Patient Comments Patient Comments Back pain with kneeling for bath time, otherwise went on a hike with the baby and that went fine. PT-OP-I Pelvic Floor Start: 09/14/21 07:57 Freq: Status: Active Protocol: Document 09/14/21 09:00 AMB (Rec: 09/16/21 21:30 AMB [id number]) Pelvic Floor Assessment Urine Pelvic Floor Surgery No Leakage Size Small Leakage Cause Exercise Voiding Frequency 5/day Nocturia 1 Prolapse Rectocele Grade 2 Perineal Descent Resting Absent Bearing Present Contraction Ability Voluntary Contraction Weak Voluntary Relaxation Moderate Manual Muscle Testing Left 3 Manual Muscle Testing Right 3 Manual Muscle Testing Anterior 3 Manual Muscle Testing Posterior 3 Muscle Endurance (Seconds) 7 Number of Quick Contractions In 10 4 Seconds Comments Pelvic Floor Comments 2 finger width diastasis distal to umbilicus PT-OP-Q Treatments Start: 09/14/21 07:57 Freq: Status: Active Protocol: Document 10/29/21 09:45 AMB (Rec: 10/30/21 12:25 AMB [id number]) Therapeutic Exercises Other Exercises QL stretch Other Exercise Name in quadruped Comments with ball at chest kneeling Other Exercise Name posterior pelvic tilt bird dog Reps/Minutes 2x10 quadruped LE ext Reps/Minutes 2x10 Comments cue PF and TA-- small range to avoid lordosis quadruped UE ext Reps/Minutes 2x10 Comments cue PF and TA, breath PT-OP-T Assessment and Plan Start: 09/14/21 07:57 Freq: Status: Active Protocol: Document 10/29/21 09:45 AMB (Rec: 10/29/21 10:30 AMB [id number]) Physical Therapy Assessment Goals Two Impairment Back pain/diastasis recti Short Term Goal (STG) Yesika will be independent with a HEP for pelvic floor and core strengthening STG Duration 5 weeks Client Service Representative Goal (LTG) Yesika will lift her children with 1/10 back pain or less. LTG Duration 10 weeks One Impairment Continence Short Term Goal (STG) Yesika will squat without leaking urine. STG Duration 5 weeks Client Service Representative Goal (LTG) Yesika will perform light plyometrics without leaking. LTG Duration 10 weeks Assessment Summary Assessment Yesika continues to feel better when she practices posterior pelvic tilts. Challenged by this in kneeling, so practiced in kneeling and quadruped today, continued to encourage in challenges of finding time to exercise while carring for young children. Physical Therapy Plan Next Visit Focus/Plan Next Note Type Treatment Note Next Visit Plan Reassess back pain. Biofeedback/ progress strengthening, address TA weakness, follow up on posture
--- NOTE | 2021-12-02 15:25 | PT.OTN ---
Current Diagnoses Low back pain, unspecified (12/02/21) Other specified disorders of muscle (12/02/21) Stress incontinence (female) (male) (12/02/21) Physical Therapy Treatment Note PT-OP-A Visit Information Start: 09/14/21 07:57 Freq: Status: Active Protocol: Document 12/02/21 09:06 AMB (Rec: 12/02/21 10:02 AMB [id number]) Out-Patient Physical Therapy Visit Information Visit Information Visit Type Treatment Note Visit Start Time 09:00 Visit Stop Time 09:45 Total Visit Minutes 45 Visit Number 8 PT-OP-B Current Condition Start: 09/14/21 07:57 Freq: Status: Active Protocol: Document 09/14/21 09:05 AMB (Rec: 09/14/21 09:23 AMB [id number]) Current Condition History of Current Condition Onset Date 6 months Current Complaints Stress urinary incontinence History of Current Condition vaginal deliveries, 3 in last 3 years. 2nd degree tear with the first, then 1st, no prolonged pushings, no longer breast feeding. Current back pain. Noticed it at least 4 months ago. Was getting better with exercise and then stopped exercising because of a dental procedure and hasn't gotten back to it. Denies urgency. Does have stress incontinence intermittently, mostly with exercise. Sometimes squatting, sometimes not. Personal Factors Other Personal Factors That May Effect Back pain, 4 vaginal Therapy/Recovery deliveries PT-OP-C Subjective Start: 09/14/21 07:57 Freq: Status: Active Protocol: Document 12/02/21 09:06 AMB (Rec: 12/02/21 10:02 AMB [id number]) OP-PT Subjective Patient Comments Patient Comments Low back pain with bike riding /moving from sit to stand PT-OP-I Pelvic Floor Start: 09/14/21 07:57 Freq: Status: Active Protocol: Document 09/14/21 09:00 AMB (Rec: 09/16/21 21:30 AMB [id number]) Pelvic Floor Assessment Urine Pelvic Floor Surgery No Leakage Size Small Leakage Cause Exercise Voiding Frequency 5/day Nocturia 1 Prolapse Rectocele Grade 2 Perineal Descent Resting Absent Bearing Present Contraction Ability Voluntary Contraction Weak Voluntary Relaxation Moderate Manual Muscle Testing Left 3 Manual Muscle Testing Right 3 Manual Muscle Testing Anterior 3 Manual Muscle Testing Posterior 3 Muscle Endurance (Seconds) 7 Number of Quick Contractions In 10 4 Seconds Comments Pelvic Floor Comments 2 finger width diastasis distal to umbilicus PT-OP-Q Treatments Start: 09/14/21 07:57 Freq: Status: Active Protocol: Document 12/02/21 09:00 AMB (Rec: 12/07/21 13:04 AMB [id number]) Manual Therapy Treatment Soft Tissue Mobilization 2 Body Location external obturatus Mobilization Type Myofascial Release Joint Mobilizations 1 Joint L5S1 Direction PA Taping 1 Type of Tape Kinesio Tape Comments sacrum stabilization PT-OP-T Assessment and Plan Start: 09/14/21 07:57 Freq: Status: Active Protocol: Document 12/02/21 09:00 AMB (Rec: 12/07/21 13:04 AMB [id number]) Physical Therapy Assessment Goals Three Impairment Coccyx pain Short Term Goal (STG) Yesika will be able to ride her bike for 30 minutes without coccyx pain. STG Duration 4 weeks Correction Goal (LTG) Yesika will be able to move from sit to stand without pain . LTG Duration 8 weeks Two Impairment Back pain/diastasis recti Short Term Goal (STG) Yesika will be independent with a HEP for pelvic floor and core strengthening STG Duration MET Disk Grinder Goal (LTG) Yesika will lift her children with 1/10 back pain or less. LTG Duration MET One Impairment Continence Short Term Goal (STG) Yesika will squat without leaking urine. STG Duration MET Disk Grinder Goal (LTG) Yesika will perform light plyometrics without leaking. LTG Duration MET Assessment Summary Assessment Yesika has improved her CHAZ and back pain. However she attends physical therapy concerned about coccyx pain. It is worst after sitting and then moving from sit to stand. Especially bad after using her stationary bicycle, to the point she avoids biking because of the pain. She would like to work on this now that we have improved her pelvic floor strength and back pain. It is new since the most recent childbirth. Physical Therapy Plan Frequency and Duration Frequency of Treatment 1x/Week Duration of treatment (weeks) 8 Plan of Care Start Date 12/02/21 Plan of Care End Date 01/27/22 Therapeutic Interventions Therapeutic Interventions Home Exercise Program,Manual Therapy,Neuromuscular Re- education,Self-Care/Home Management,Therapeutic Activities,Therapeutic Exercises Modalities Biofeedback,Electric Stimulation Next Visit Focus/Plan Next Note Type Treatment Note Next Visit Plan Assess coccyx pain. May need to address internally if did not notice significant relief after external work.
--- NOTE | 2021-12-02 15:33 | PT.OPPOC ---
Physical, Occupational & Speech Therapy At [facility] Current Diagnoses Low back pain, unspecified (12/02/21) Other specified disorders of muscle (12/02/21) Stress incontinence (female) (male) (12/02/21) Visit Care Team Role Provider Type Argenis Ackerman MD Attending Provider Physician Family Provider Primary Care Provider Referring Provider Specialty: Family Practice Address: [address] [place] [address], [place], [address] Email: [email or web address] Plan Of Care PT-OP-T Assessment and Plan Start: 09/14/21 07:57 Freq: Status: Active Protocol: Document 12/02/21 09:00 AMB (Rec: 12/07/21 13:04 AMB [id number]) Physical Therapy Assessment Goals Three Impairment Coccyx pain Short Term Goal (STG) Yesika will be able to ride her bike for 30 minutes without coccyx pain. STG Duration 4 weeks Usp Goal (LTG) Yesika will be able to move from sit to stand without pain . LTG Duration 8 weeks Two Impairment Back pain/diastasis recti Short Term Goal (STG) Yesika will be independent with a HEP for pelvic floor and core strengthening STG Duration MET Usp Goal (LTG) Yesika will lift her children with 1/10 back pain or less. LTG Duration MET One Impairment Continence Short Term Goal (STG) Yesika will squat without leaking urine. STG Duration MET Usp Goal (LTG) Yesika will perform light plyometrics without leaking. LTG Duration MET Assessment Summary Assessment Yesika has improved her CAHZ and back pain. However she attends physical therapy concerned about coccyx pain. It is worst after sitting and then moving from sit to stand. Especially bad after using her stationary bicycle, to the point she avoids biking because of the pain. She would like to work on this now that we have improved her pelvic floor strength and back pain. It is new since the most recent childbirth. Physical Therapy Plan Frequency and Duration Frequency of Treatment 1x/Week Duration of treatment (weeks) 8 Plan of Care Start Date 12/02/21 Plan of Care End Date 01/27/22 Therapeutic Interventions Therapeutic Interventions Home Exercise Program,Manual Therapy,Neuromuscular Re- education,Self-Care/Home Management,Therapeutic Activities,Therapeutic Exercises Modalities Biofeedback,Electric Stimulation Next Visit Focus/Plan Next Note Type Treatment Note Next Visit Plan Assess coccyx pain. May need to address internally if did not notice significant relief after external work. Plan of Care Dates Plan of Care Start Date 12/02/21 Plan of Care End Date 01/27/22 Electronically Signed by: Violet Renteria, PT 12/07/21 5211 If you are in agreement with this Plan of Care, please return a signed and dated copy. I have reviewed this Plan of Care and certify that the skilled therapy services above are required to meet the patient?s needs. Physician Signature Date Printed Name and Credentials Clinical Instructor Signature Printed Name and Credentials
--- NOTE | 2021-12-09 13:01 | PT.OTN ---
Current Diagnoses Low back pain, unspecified (12/09/21) Other specified disorders of muscle (12/09/21) Stress incontinence (female) (male) (12/09/21) Physical Therapy Treatment Note PT-OP-A Visit Information Start: 09/14/21 07:57 Freq: Status: Active Protocol: Document 12/09/21 09:02 AMB (Rec: 12/09/21 09:49 AMB [id number]) Out-Patient Physical Therapy Visit Information Visit Information Visit Type Treatment Note Visit Start Time 09:00 Visit Stop Time 09:45 Total Visit Minutes 45 Visit Number 9 PT-OP-B Current Condition Start: 09/14/21 07:57 Freq: Status: Active Protocol: Document 09/14/21 09:05 AMB (Rec: 09/14/21 09:23 AMB [id number]) Current Condition History of Current Condition Onset Date 6 months Current Complaints Stress urinary incontinence History of Current Condition vaginal deliveries, 3 in last 3 years. 2nd degree tear with the first, then 1st, no prolonged pushings, no longer breast feeding. Current back pain. Noticed it at least 4 months ago. Was getting better with exercise and then stopped exercising because of a dental procedure and hasn't gotten back to it. Denies urgency. Does have stress incontinence intermittently, mostly with exercise. Sometimes squatting, sometimes not. Personal Factors Other Personal Factors That May Effect Back pain, 4 vaginal Therapy/Recovery deliveries PT-OP-C Subjective Start: 09/14/21 07:57 Freq: Status: Active Protocol: Document 12/09/21 09:02 AMB (Rec: 12/09/21 09:49 AMB [id number]) OP-PT Subjective Patient Comments Patient Comments Sitting a wider of variety of chairs without the pain. PT-OP-I Pelvic Floor Start: 09/14/21 07:57 Freq: Status: Active Protocol: Document 09/14/21 09:00 AMB (Rec: 09/16/21 21:30 AMB [id number]) Pelvic Floor Assessment Urine Pelvic Floor Surgery No Leakage Size Small Leakage Cause Exercise Voiding Frequency 5/day Nocturia 1 Prolapse Rectocele Grade 2 Perineal Descent Resting Absent Bearing Present Contraction Ability Voluntary Contraction Weak Voluntary Relaxation Moderate Manual Muscle Testing Left 3 Manual Muscle Testing Right 3 Manual Muscle Testing Anterior 3 Manual Muscle Testing Posterior 3 Muscle Endurance (Seconds) 7 Number of Quick Contractions In 10 4 Seconds Comments Pelvic Floor Comments 2 finger width diastasis distal to umbilicus PT-OP-Q Treatments Start: 09/14/21 07:57 Freq: Status: Active Protocol: Document 12/09/21 09:00 AMB (Rec: 12/09/21 13:01 AMB [id number]) Cardio Equipment Bicycle (Upright) Duration (Minutes) 2 Resistance 3 Therapeutic Exercises Supine Exercises piriformis stretch Supine Exercise Name R Reps/Minutes 30x2 Manual Therapy Treatment Soft Tissue Mobilization 2 Body Location external obturatus Mobilization Type Myofascial Release Comments R>L; prone 1 Body Location piriformis Mobilization Type Manual Lymphatic Drainage Comments R Joint Mobilizations 1 Joint L5S1 Direction PA Comments prone PT-OP-T Assessment and Plan Start: 09/14/21 07:57 Freq: Status: Active Protocol: Document 12/09/21 09:00 AMB (Rec: 12/09/21 13:01 AMB [id number]) Physical Therapy Assessment Goals Three Impairment Coccyx pain Short Term Goal (STG) Yesika will be able to ride her bike for 30 minutes without coccyx pain. STG Duration 4 weeks Storekeeper Steward Goal (LTG) Yesika will be able to move from sit to stand without pain . LTG Duration 8 weeks Two Impairment Back pain/diastasis recti Short Term Goal (STG) Yesika will be independent with a HEP for pelvic floor and core strengthening STG Duration MET Storekeeper Steward Goal (LTG) Yesika will lift her children with 1/10 back pain or less. LTG Duration MET One Impairment Continence Short Term Goal (STG) Yesika will squat without leaking urine. STG Duration MET Group Home Goal (LTG) Yesika will perform light plyometrics without leaking. LTG Duration MET Assessment Summary Assessment Yesika had improved sx after last treatment. But sx returned mildly with sitting on upright bike in clinic, worse on the R today, encouraged to continue to hold off on long bike rides at this point. Physical Therapy Plan Next Visit Focus/Plan Next Visit Plan Continue with external vs internal coccyx mobs for tolerance
--- NOTE | 2021-12-23 13:34 | PT.OTN ---
Current Diagnoses Low back pain, unspecified (12/22/21) Other specified disorders of muscle (12/22/21) Stress incontinence (female) (male) (12/22/21) Physical Therapy Treatment Note PT-OP-A Visit Information Start: 09/14/21 07:57 Freq: Status: Active Protocol: Document 12/22/21 14:30 AMB (Rec: 12/23/21 13:34 AMB [id number]) Out-Patient Physical Therapy Visit Information Visit Information Visit Type Treatment Note Visit Start Time 14:30 Visit Stop Time 15:15 Total Visit Minutes 45 Visit Number 10 PT-OP-B Current Condition Start: 09/14/21 07:57 Freq: Status: Active Protocol: Document 09/14/21 09:05 AMB (Rec: 09/14/21 09:23 AMB [id number]) Current Condition History of Current Condition Onset Date 6 months Current Complaints Stress urinary incontinence History of Current Condition vaginal deliveries, 3 in last 3 years. 2nd degree tear with the first, then 1st, no prolonged pushings, no longer breast feeding. Current back pain. Noticed it at least 4 months ago. Was getting better with exercise and then stopped exercising because of a dental procedure and hasn't gotten back to it. Denies urgency. Does have stress incontinence intermittently, mostly with exercise. Sometimes squatting, sometimes not. Personal Factors Other Personal Factors That May Effect Back pain, 4 vaginal Therapy/Recovery deliveries PT-OP-C Subjective Start: 09/14/21 07:57 Freq: Status: Active Protocol: Document 12/22/21 14:30 AMB (Rec: 12/23/21 13:34 AMB [id number]) OP-PT Subjective Patient Comments Patient Comments Had a flare up. Overall felt better for the past 2 weeks, but then tried to ride the bike. Rode for 15 minutes and felt ok, but then that evening pain was worse and has stayed bad. PT-OP-I Pelvic Floor Start: 09/14/21 07:57 Freq: Status: Active Protocol: Document 09/14/21 09:00 AMB (Rec: 09/16/21 21:30 AMB [id number]) Pelvic Floor Assessment Urine Pelvic Floor Surgery No Leakage Size Small Leakage Cause Exercise Voiding Frequency 5/day Nocturia 1 Prolapse Rectocele Grade 2 Perineal Descent Resting Absent Bearing Present Contraction Ability Voluntary Contraction Weak Voluntary Relaxation Moderate Manual Muscle Testing Left 3 Manual Muscle Testing Right 3 Manual Muscle Testing Anterior 3 Manual Muscle Testing Posterior 3 Muscle Endurance (Seconds) 7 Number of Quick Contractions In 10 4 Seconds Comments Pelvic Floor Comments 2 finger width diastasis distal to umbilicus PT-OP-Q Treatments Start: 09/14/21 07:57 Freq: Status: Active Protocol: Document 12/22/21 14:30 AMB (Rec: 12/23/21 13:34 AMB [id number]) Therapeutic Exercises Supine Exercises self MET inn rotation Supine Exercise Name for R post rotation Manual Therapy Treatment Soft Tissue Mobilization 2 Body Location external obturatus Mobilization Type Myofascial Release Comments R>L; prone Joint Mobilizations 1 Joint L5S1 Direction PA Comments prone PT-OP-T Assessment and Plan Start: 09/14/21 07:57 Freq: Status: Active Protocol: Document 12/22/21 14:30 AMB (Rec: 12/23/21 13:34 AMB [id number]) Physical Therapy Assessment Goals Three Impairment Coccyx pain Short Term Goal (STG) Yesika will be able to ride her bike for 30 minutes without coccyx pain. STG Duration 4 weeks Time Clock Mechanic Goal (LTG) Yesika will be able to move from sit to stand without pain . LTG Duration 8 weeks Two Impairment Back pain/diastasis recti Short Term Goal (STG) Yesika will be independent with a HEP for pelvic floor and core strengthening STG Duration MET Halfway Goal (LTG) Yesika will lift her children with 1/10 back pain or less. LTG Duration MET One Impairment Continence Short Term Goal (STG) Yesika will squat without leaking urine. STG Duration MET Halfway Goal (LTG) Yesika will perform light plyometrics without leaking. LTG Duration MET Assessment Summary Assessment Encouraged Yesika that this is just one step back and that she will improve again, but did discuss that bike riding may not be an appropriate exercise for a while. Encouraged her in other exercises for now. Physical Therapy Plan Next Visit Focus/Plan Next Visit Plan Consider internal mobs if pain continues, pain was more sacral in nature at this appointment.
--- NOTE | 2022-01-01 15:28 | PT.OTN ---
Current Diagnoses Low back pain, unspecified (01/01/22) Other specified disorders of muscle (01/01/22) Stress incontinence (female) (male) (01/01/22) Physical Therapy Treatment Note PT-OP-A Visit Information Start: 09/14/21 07:57 Freq: Status: Active Protocol: Document 01/01/22 14:32 AMB (Rec: 01/01/22 15:28 AMB [id number]) Out-Patient Physical Therapy Visit Information Visit Information Visit Type Treatment Note Visit Start Time 14:30 Visit Stop Time 15:15 Total Visit Minutes 45 Visit Number 11 PT-OP-B Current Condition Start: 09/14/21 07:57 Freq: Status: Active Protocol: Document 09/14/21 09:05 AMB (Rec: 09/14/21 09:23 AMB [id number]) Current Condition History of Current Condition Onset Date 6 months Current Complaints Stress urinary incontinence History of Current Condition vaginal deliveries, 3 in last 3 years. 2nd degree tear with the first, then 1st, no prolonged pushings, no longer breast feeding. Current back pain. Noticed it at least 4 months ago. Was getting better with exercise and then stopped exercising because of a dental procedure and hasn't gotten back to it. Denies urgency. Does have stress incontinence intermittently, mostly with exercise. Sometimes squatting, sometimes not. Personal Factors Other Personal Factors That May Effect Back pain, 4 vaginal Therapy/Recovery deliveries PT-OP-C Subjective Start: 09/14/21 07:57 Freq: Status: Active Protocol: Document 01/01/22 14:32 AMB (Rec: 01/01/22 15:28 AMB [id number]) OP-PT Subjective Patient Comments Patient Comments Better this week, did find MET very helpful. Has been able to sit at the dining room table and be ok. Didn't try biking again. PT-OP-I Pelvic Floor Start: 09/14/21 07:57 Freq: Status: Active Protocol: Document 09/14/21 09:00 AMB (Rec: 09/16/21 21:30 AMB [id number]) Pelvic Floor Assessment Urine Pelvic Floor Surgery No Leakage Size Small Leakage Cause Exercise Voiding Frequency 5/day Nocturia 1 Prolapse Rectocele Grade 2 Perineal Descent Resting Absent Bearing Present Contraction Ability Voluntary Contraction Weak Voluntary Relaxation Moderate Manual Muscle Testing Left 3 Manual Muscle Testing Right 3 Manual Muscle Testing Anterior 3 Manual Muscle Testing Posterior 3 Muscle Endurance (Seconds) 7 Number of Quick Contractions In 10 4 Seconds Comments Pelvic Floor Comments 2 finger width diastasis distal to umbilicus PT-OP-Q Treatments Start: 09/14/21 07:57 Freq: Status: Active Protocol: Document 01/01/22 14:32 AMB (Rec: 01/01/22 15:28 AMB [id number]) Manual Therapy Treatment Joint Mobilizations coccyx Direction AP Grade II Body Position Sidelying PT-OP-T Assessment and Plan Start: 09/14/21 07:57 Freq: Status: Active Protocol: Document 01/01/22 14:32 AMB (Rec: 01/01/22 15:28 AMB [id number]) Physical Therapy Assessment Goals Three Impairment Coccyx pain Short Term Goal (STG) Yesika will be able to ride her bike for 30 minutes without coccyx pain. STG Duration 4 weeks Diamond Sizer And Sorter Goal (LTG) Yesika will be able to move from sit to stand without pain . LTG Duration 8 weeks Two Impairment Back pain/diastasis recti Short Term Goal (STG) Yesika will be independent with a HEP for pelvic floor and core strengthening STG Duration MET Half-Way Goal (LTG) Yesika will lift her children with 1/10 back pain or less. LTG Duration MET One Impairment Continence Short Term Goal (STG) Yesika will squat without leaking urine. STG Duration MET Half-Way Goal (LTG) Yesika will perform light plyometrics without leaking. LTG Duration MET Assessment Summary Assessment Pt wiht mobile coccyx, but was forward flexed, encouraged not to ride bike for now, we were able to reproduce pain with anterior pelvic tilt, so try to control that with sit to stand and get that to be painfree before working on the bike more. Physical Therapy Plan Next Visit Focus/Plan Next Visit Plan Follow up on internal mobs
--- NOTE | 2022-05-16 10:42 | PT.OPDS ---
Current Diagnoses Low back pain, unspecified (01/01/22) Other specified disorders of muscle (01/01/22) Stress incontinence (female) (male) (01/01/22) Visit Care Team Role Provider Type Argenis Ackerman MD Attending Provider Physician Family Provider Primary Care Provider Referring Provider Specialty: Family Practice Address: [address] [place] [address], [id number] Email: [email or web address] Visit Number Visit Number 11 Discharge Summary PT-OP-B Current Condition Start: 09/14/21 07:57 Freq: Status: Active Protocol: Document 09/14/21 09:05 AMB (Rec: 09/14/21 09:23 AMB [id number]) Current Condition History of Current Condition Onset Date 6 months Current Complaints Stress urinary incontinence History of Current Condition vaginal deliveries, 3 in last 3 years. 2nd degree tear with the first, then 1st, no prolonged pushings, no longer breast feeding. Current back pain. Noticed it at least 4 months ago. Was getting better with exercise and then stopped exercising because of a dental procedure and hasn't gotten back to it. Denies urgency. Does have stress incontinence intermittently, mostly with exercise. Sometimes squatting, sometimes not. Personal Factors Other Personal Factors That May Effect Back pain, 4 vaginal Therapy/Recovery deliveries PT-OP-C Subjective Start: 09/14/21 07:57 Freq: Status: Active Protocol: Document 01/01/22 14:32 AMB (Rec: 01/01/22 15:28 AMB [id number]) OP-PT Subjective Patient Comments Patient Comments Better this week, did find MET very helpful. Has been able to sit at the dining room table and be ok. Didn't try biking again. PT-OP-I Pelvic Floor Start: 09/14/21 07:57 Freq: Status: Active Protocol: Document 09/14/21 09:00 AMB (Rec: 09/16/21 21:30 AMB [id number]) Pelvic Floor Assessment Urine Pelvic Floor Surgery No Leakage Size Small Leakage Cause Exercise Voiding Frequency 5/day Nocturia 1 Prolapse Rectocele Grade 2 Perineal Descent Resting Absent Bearing Present Contraction Ability Voluntary Contraction Weak Voluntary Relaxation Moderate Manual Muscle Testing Left 3 Manual Muscle Testing Right 3 Manual Muscle Testing Anterior 3 Manual Muscle Testing Posterior 3 Muscle Endurance (Seconds) 7 Number of Quick Contractions In 10 4 Seconds Comments Pelvic Floor Comments 2 finger width diastasis distal to umbilicus PT-OP-T Assessment and Plan Start: 09/14/21 07:57 Freq: Status: Active Protocol: Document 05/16/22 10:41 AMB (Rec: 05/16/22 10:42 AMB [id number]) Physical Therapy Assessment Goals Three Impairment Coccyx pain Short Term Goal (STG) Yesika will be able to ride her bike for 30 minutes without coccyx pain. STG Duration 4 weeks Penitentiary Goal (LTG) Yesika will be able to move from sit to stand without pain . LTG Duration 8 weeks Two Impairment Back pain/diastasis recti Short Term Goal (STG) Yesika will be independent with a HEP for pelvic floor and core strengthening STG Duration MET Newspaper Correspondent Goal (LTG) Yesika will lift her children with 1/10 back pain or less. LTG Duration MET One Impairment Continence Short Term Goal (STG) Yesika will squat without leaking urine. STG Duration MET Newspaper Correspondent Goal (LTG) Yesika will perform light plyometrics without leaking. LTG Duration MET Assessment Summary Assessment Yesika had met the majority of her goals, but was dealing with coccyx pain when she became again and has not followed up to continue to schedule more appointments. Physical Therapy Plan Discharge Physical Therapy Discharge Reasons No Longer Attending PT
== END 2022-05-17 11:15 | disposition home or self-care (01) ==
LOC: PHYS 14:30
PROVIDERS: Family Provider Family Medicine; PCP Family Medicine; Referring Provider Family Medicine; Visit Provider Family Medicine
DX: M62.89 Other specified disorders of muscle (principal); N39.3 Stress incontinence (female) (male); M54.50 Low back pain, unspecified
CPT/HCPCS: 97110; 97140; 97161

== ENCOUNTER → 2022-02-18 16:46 | Outpatient (CLI) | payer OTHER, SELFPAY ==
[2022-02-20 07:36] LABS: Candida species Positive (Negative); Gardnerella vaginalis Negative (Negative); Trichomoas vaginalis Negative (Negative)
== END ==
PROVIDERS: Family Provider Family Medicine; PCP Family Medicine; Visit Provider Obstetrics & Gynecology
DX: Z34.01 Encounter for supervision of normal first pregnancy, first trimester (principal); N89.8 Other specified noninflammatory disorders of vagina
CPT/HCPCS: 87480; 87510; 87660

== ENCOUNTER → 2022-03-08 16:45 | Outpatient (CLI) | payer OTHER, SELFPAY ==
--- NOTE | 2022-03-08 16:46 | DI.US.S_ITS ---
PROCEDURE: US OB <= 14 WEEKS FETUS INDICATIONS: Dating and viability OUTSIDE/PRIOR DATING DATA: Last menstrual period (LMP): 12/22/2021. LMP-based estimated date of delivery (MILLIE): 09/28/2022. First dating scan (date and location): 03/08/2022. Estimated date of delivery (MILLIE) from first dating scan: 09/26/2022. The calculations are made using the WORKING MILLIE of 09/28/2022. TECHNIQUE: Real-time scanning was performed of the fetus and maternal pelvic organs, with image documentation. Endovaginal scanning was also performed to better visualize the fetus and maternal ovaries. COMPARISON: None. FINDINGS: Embryo: There is an intrauterine gestational sac with pole and yolk sac. cardiac activity is present with heart rate 169 BPM. Based on the crown-rump length, the estimated gestational age is 11 weeks 1 day. Maternal organs: Ovaries are grossly normal. There is a thick-walled cyst in the right ovary, likely corpus luteal cyst. IMPRESSION: 1. A single living intrauterine gestation with an estimated gestational age of 11 weeks 1 day corresponding to ultrasound MILLIE 09/26/2022. Ultrasound dating concordant with clinical dating. 2. Suspect a corpus luteal cyst in right ovary. We strive to produce accurate, complete, and clear reports of imaging services. To assist us in improving patient care, this report was composed using standard report templates and voice recognition software. Therefore, it may contain abnormal punctuation, insertions and/or omissions. Occasional wrong-word or sound-alike substitutions may occur. Though we review the report and make efforts to correct it, we do recommend that the report be read carefully in proper context to recognize any text inaccuracies. Dictated by: Rufino Desir M.D. on 03/09/2022 at 8:49 Approved by: Rufino Desir M.D. on 03/09/2022 at 8:53
== END ==
PROVIDERS: Family Provider Family Medicine; PCP Family Medicine; Referring Provider Obstetrics & Gynecology; Visit Provider Obstetrics & Gynecology
DX: Z36.87 Encounter for antenatal screening for uncertain dates (principal); Z3A.11 11 weeks gestation of pregnancy
CPT/HCPCS: 76801; 76817

== ENCOUNTER → 2022-03-16 14:41 | Outpatient (CLI) | payer OTHER, SELFPAY ==
[2022-03-16 20:16] LABS: Urine N gonorrhoeae NOT DETECTED
[2022-03-16 20:33] LABS: Urine Chlamydia NOT DETECTED
== END ==
PROVIDERS: Family Provider Family Medicine; PCP Family Medicine; Visit Provider Obstetrics & Gynecology
DX: Z34.81 Encounter for supervision of other normal pregnancy, first trimester (principal); Z3A.12 12 weeks gestation of pregnancy
CPT/HCPCS: 87491; 87591

== ENCOUNTER → 2022-03-16 15:08 | Outpatient (CLI) | payer OTHER, SELFPAY ==
[2022-03-16 15:40] LABS: Add Manual Diff / Slide Review NO; Basophils Absolute Auto 0 /uL (0-100); Basophils Percent Auto 0.4 % (0-2); Eosinophils Absolute Auto 100 /uL (0-450); Eosinophils Percent Auto 0.6 % (2-4); Hemoglobin 13.5 g/dL (12.0-16.0); Lymphocytes Absolute Auto 2000 /uL (1100-4500); Lymphocytes Percent Auto 23.2 % (25-40); Mean Corpuscular HGB Conc 34.7 % (30-36); Mean Corpuscular Hemoglobin 31.9 PG (26-34); Mean Corpuscular Volume 91.8 fL (80-100); Monocytes Absolute Auto 700 /uL (0-900); Monocytes Percent Auto 7.7 % (3-14); Neutrophils Absolute Auto 5900 /uL (1500-7000); Neutrophils Percent Auto 68.1 % (50-75); Platelet Count 195 X10^3/uL (150-400); Red Blood Cell Count 4.25 X10^6/uL (4.0-5.2); Red Cell Distribution Width 13.1 % (11.6-14.8); White Blood Cell Count 8.6 X10^3/uL (4.5-11.0)
[2022-03-16 16:12] LABS: Appearance Urine UA CLEAR; Bilirubin Urine UA NEGATIVE (NEGATIVE); Color Urine UA YELLOW; Glucose Urine UA NEGATIVE (Negative); Ketones Urine UA NEGATIVE (NEGATIVE); Leukocyte Esterase Urine UA NEGATIVE (NEGATIVE); Nitrite Urine UA NEGATIVE (Negative); Occult Blood Urine UA NEGATIVE (Negative); Protein Urine UA NEGATIVE (Negative); Specific Gravity Urine UA <=1.005 (1.000-1.035); Urobilinogen Urine UA 0.2 E.U./dL (0.2); pH Urine UA 6.5 (4.5-8.0)
[2022-03-18 08:37] LABS: Varicella IgG Antibody 479 index (Immune >165)
[2022-03-18 16:12] LABS: Hepatitis B Surface Antigen NEGATIVE s/c (NEGATIVE); Rubella Antibody IgG 6.2 IU/mL (>15)
[2022-03-18 16:27] LABS: HIV 1 & 2 Ab/Ag 4th Gen Combo NEGATIVE (NEGATIVE); Hep C Virus Ab w/Reflex Quant NEGATIVE s/c (NEGATIVE)
[2022-03-19 07:23] LABS: RPR Screen Non Reactive (Non Reactive)
== END ==
PROVIDERS: Family Provider Family Medicine; PCP Family Medicine; Referring Provider Obstetrics & Gynecology; Visit Provider Obstetrics & Gynecology
DX: Z34.81 Encounter for supervision of other normal pregnancy, first trimester (principal); Z3A.12 12 weeks gestation of pregnancy
CPT/HCPCS: 36415; 80055; 81003; 86787; 86803; 86850; 86900; 86901; 87389; 87491; 87591

== ENCOUNTER → 2022-04-14 10:02 | Outpatient (CLI) | payer OTHER, SELFPAY | PROVIDERS: Family Provider Family Medicine; PCP Family Medicine; Visit Provider Obstetrics & Gynecology | DX: Z34.82 Encounter for supervision of other normal pregnancy, second trimester (principal); Z3A.16 16 weeks gestation of pregnancy | CPT/HCPCS: 87086 ==

== ENCOUNTER → 2023-04-05 09:44 | Outpatient (CLI) | payer OTHER, SELFPAY ==
[2023-04-05 11:02] LABS: Add Manual Diff / Slide Review NO; Basophils Absolute Auto 0 /uL (0-100); Basophils Percent Auto 0.7 % (0-2); Eosinophils Absolute Auto 200 /uL (0-450); Eosinophils Percent Auto 4.3 % (2-4); Hematocrit 41.6 % (36-46); Hemoglobin 14.2 g/dL (12.0-16.0); Lymphocytes Absolute Auto 2100 /uL (1100-4500); Lymphocytes Percent Auto 39.2 % (25-40); Mean Corpuscular HGB Conc 34.1 % (30-36); Mean Corpuscular Hemoglobin 31.4 PG (26-34); Monocytes Absolute Auto 700 /uL (0-900); Neutrophils Absolute Auto 2300 /uL (1500-7000); Neutrophils Percent Auto 42.8 % (50-75); Platelet Count 180 X10^3/uL (150-400); Red Blood Cell Count 4.52 X10^6/uL (4.0-5.2); Red Cell Distribution Width 12.3 % (11.6-14.8); White Blood Cell Count 5.4 X10^3/uL (4.5-11.0)
[2023-04-05 11:42] LABS: Alanine Aminotransferase 30 IU/L (<35); Albumin 4.3 g/dL (3.5-5.0); Albumin Globulin Ratio 1.5 (1.0-2.8); Alkaline Phosphatase 39 U/L (38-126); Aspartate Aminotransferase 22 IU/L (14-36); BUN Creatinine Ratio 18.1 (6-22); Bilirubin Total 0.4 mg/dL (0.2-1.3); Blood Urea Nitrogen 13 mg/dL (7-17); Calcium 9.7 mg/dL (8.4-10.2); Carbon Dioxide 27 mmol/L (22-32); Chloride 103 mmol/L (98-107); Estimated Glomerular Filt Rate > 60 mL/min (>60); Globulin 2.8 g/dL (1.7-4.1); Glucose 88 mg/dL (70-100); HEMOLYSIS < 15 (0-50); Sodium 141 mmol/L (137-145); Total Protein 7.1 g/dL (6.3-8.2)
[2023-04-05 11:44] LABS: Vitamin D 25 Hydroxy (D3) 54.2 ng/mL (30.0-100.0)
[2023-04-05 11:54] LABS: Prolactin 17.9 ng/mL (3.0-18.6)
[2023-04-05 11:56] LABS: Free T3, Triiodothyronine Free 4.54 pg/mL (2.77-5.27); Free T4, Direct Thyroxine 1.15 ng/dL (0.78-2.19)
[2023-04-05 12:09] LABS: Thyroid Stimulating Hormone 1.61 uIU/mL (0.47-4.68)
[2023-04-05 12:27] LABS: Vitamin B12 966 pg/mL (239-931)
== END ==
LOC: LAB 09:45
PROVIDERS: Family Provider Family Medicine; PCP Family Medicine; Referring Provider Family Medicine; Visit Provider Family Medicine
DX: R53.83 Other fatigue (principal); R63.0 Anorexia; Z39.1 Encounter for care and examination of lactating mother
CPT/HCPCS: 36415; 80053; 82306; 82607; 84146; 84439; 84443; 84481; 85025

== ENCOUNTER → 2023-04-14 08:06 | Outpatient (CLI) | payer OTHER, SELFPAY ==
[2023-04-15 19:42] LABS: Anti Thyroglobulin Antibody <1.0 IU/mL (0.0-0.9); Thyroid Peroxidase Antibodies 11 IU/mL (0-34)
[2023-04-19 10:09] LABS: Adrenocorticotropic Hormone 15.3 pg/mL (7.2-63.3)
[2023-05-04 07:50] LABS: Plama Renin, LC/MS/MS 1.975
[2023-05-04 07:51] LABS: Aldosterone/Renin Activity Rat 4.7
== END ==
PROVIDERS: Family Provider Family Medicine; PCP Family Medicine; Referring Provider Family Medicine; Visit Provider Family Medicine
DX: R53.83 Other fatigue (principal)
CPT/HCPCS: 36415; 82024; 82088; 82533; 84244; 86376; 86800